=== PATIENT | female | born 1970 | race Caucasian/White ===

== ENCOUNTER → 2022-01-10 09:24 | Outpatient (BNVA) | payer OTHER, SELFPAY | PROVIDERS: PCP Internal Medicine; Visit Provider Student in an Organized Health Care Education/Training Program | DX: M79.7 Fibromyalgia (principal); M23.51 Chronic instability of knee, right knee | CPT/HCPCS: 99212 ==

== ENCOUNTER 2025-03-27 10:57 | Outpatient (AMB) | payer OTHER, SELFPAY ==
--- NOTE | 2025-03-27 11:25 | A.SPINEOV_ITS ---
Intake Visit Reasons: cervical stenosis Intake Note: Ms. Singleton is here today c/o neck pain. MRI done @ [facility] (brought disc). Practicing Md Anesthesiologist Required: No Allergies Penicillins Adverse Reaction (Intermediate, Verified 01/10/22 09:41) Hives Assessment & Plan Assessment & Plan (1) Cervical radiculopathy: Code(s): M54.12 - Radiculopathy, cervical region Category: Medical Plan Dear Dr. Oliva, Thank you for referring Ishmael to our office today. She is a pleasant, complicated, 54-year-old female comes in today for evaluation of neck pain. She reports this has been ongoing for the past 1 year or so. She has a past medical history significant for C5-6 ACDF completed in [address] Degroot at [facility] who has since retired. She reports that she initially was evaluated prior to surgery for a severe posterior neck pain and shooting pain into her arms. Thankfully after her surgery she reports complete resolution of her pain, until about 1 year ago. She also has a history of previous single level lumbar fusion (unsure what level) and spinal cord stimulator implantation. She states that her neck pain has slowly worsened over the course of the last year starting as a low-grade pain which she rated at about 2/10, and now is a more severe sontant 6/10 daily pain with occasional worse flare ups which occur primarily with lateral rotation movements of her neck. The pain shoots into her bilateral deltoids. It is now to the point where she has difficulty sleeping at night and had to buy a special contour pillow in order to get a decent nights sleep. In addition to her history of previous cervical spine surgery, she states that she had bilateral carpal tunnel release surgeries completed. She reports that she had her right side done about 5 years ago which provided complete relief of her weakness, pain and numbness. She recently had her left side done about a year and a half ago and unfortunately had no meaningful relief of the numbness pain and weakness of her left upper extremity after the surgery. She reports that she is concerned that over the course of the last 3-4 weeks she has been dropping things, having issues with dexterity such as writing her name, and the numbness in her left hand / forearm seems to be worsening. She is currently being followed by our colleagues in Neurology for left-sided facial numbness/tingling and migraines. She reports she has been to physical therapy multiple times for this issue in the past, the last course completed about 2 months ago. She has attempted client care consultant and cortisone injections in her cervical spine without significant relief of symptoms. PMH: Being followed by Neurology, recent brain MRI showed white matter changes in the brain but Neurology does not believe this is consistent with MS. Hx of migraines with nausea, vomiting, aura, dizziness. Fibromyalgia, anxiety, chronic rhinitis. The patient reports no cardiac/pulmonary history. No kidney/liver issues reported. History of C5-6 ACDF, history single level lumbar fusion, history bilateral carpal tunnel syndrome with bilateral carpal tunnel release, history ACL repair, history cholecystectomy, history of spinal cord stimulator implantation. Social hx: Patient does not smoke, reports no substance use. Medications: See [employer] list. Allergies: PCN Physical exam: The patient ambulates without any assistive devices and does so without much difficulty. She has about 3/5 strength with bilateral iliopsoas testing. Her dorsiflexion/plantar flexion and knee extension/flexion appears full. 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 The rest of her right upper extremity strength is full. Her left-sided biceps testing is about 4/5 in her left-sided triceps testing is weaker rated at about a 3/5. Shoulder shrug also about 4/5. Patient reports bilateral hand numbness to light touch extending into mid forearm on left side. The rest of her sensation appears intact. Reflexes are 2+ normal diffusely. (-) Velasquez's, (-) clonus, (-) bilateral straight leg raise. Imaging review: MRI of the cervical spine completed at [facility] shows straightening of the normal cervical lordosis with slight kyphotic deformity seen best between C4 -7. Prior C5-6 ACDF. Notable left-sided disc herniation causing moderate central canal and moderate left-sided foraminal stenosis at C 3-4, similar left-sided disc herniation at C4-5 causing moderate central canal and moderate left-sided foraminal stenosis at this level above her previous surgical construct. There is also mild-moderate left-sided foraminal stenosis below her surgical construct at C6-7. No evidence of T2 signal change or myelomalacia. Impression: Pleasant, complicated, 54-year-old female comes in today for evaluation of neck pain. She is s/p C5-6 ACDF in 2009. She had good relief from her previous surgery, however states that about 1 year ago she began experiencing neck pain which gradually has worsened in severity as the months progressed. She is now to the point where she is in about 6/10 pain throughout the day with occasional worsening pain with flare-ups. It is now affecting her activities of daily living, and sleep. In addition to this she has no relief of her numbness or weakness in the left upper extremity after carpal tunnel release 1.5 years ago, and has been experiencing worsening numbness of her left hand extending somewhat into the left forearm for the past 3-4 weeks. These symptoms coupled with notable weakness of the left upper extremity compared to the right leads me to believe that she most likely would benefit from C3-4, C4-5 ACDF to relieve the compression seen on the spinal cord and left-sided exiting nerve roots at these levels. We discussed this at length during this visit. I will review her clinical history and imaging with my attending neurosurgeon Dr. Farfan and follow up with the patient later this week regarding a decision. Thank you for allowing us to care for your patient. The total time spent with this visit with this patient was 65 minutes reviewing history, physical exam, MRI imaging review, and implementation of treatment plan or further diagnostic testing Israel Farfan MD,PhD [facility] Coding Level of Care Code New Pt Level 5 (22537) Diagnoses Cervical radiculopathy M54.12
--- OUTSIDE RECORDS SUMMARY | 2025-03-27 22:43 | XMS_ITS | Data Portability ---
Author Organization [facility] Address [address] [facility] [address] [place] [address] Assessment Encounter Date Assessment Date Assessment LastModified by Organization Details LastModified Time 10/13/2016 10/13/2016 Ishmael Singleton is a 46 year old woman with complaints of low back pain radiating into both lower extremities, left is greater than right. She is S/P low back surgery. She has right sided foot drop. She had a trial of physical therapy with persistent pain. She is here for a follow up after a lumbar epidural steroid injection and reports 50% pain benefit which is ongoing. On Exam, she has pain on flexion. Straight leg raising test is positive on the left. MRI Lumbar Spine shows new post surgical changes at L5-S1 level with postsurgical enhancement in the surgical bed as well as some within the spinal canal surrounding the thecal scar and the left S1 nerve root. No residual or recurrent disc herniation. At L3-4 level , there is diffuse disc bulging with hypertrophy of the facet joints with effacement of left L3 nerve root. I recommend a repeat lumbar epidural steroid injection at L 3-4 level under fluoroscopic guidance. The risks and benefits of the procedure were reviewed in detail. She wishes to proceed. An appointment has been booked in January 2017. I have advised her to continue with a home exercise program. [email or web address] Not available 11/06/2016 14:56:25 02/17/2017 02/17/2017 Ishmael Singleton is a 46 year old woman with complaints of low back pain radiating into both lower extremities, left is greater than right. She is S/P low back surgery. She has right sided foot drop. She had a trial of physical therapy with persistent pain. On Exam, she has pain on flexion. Straight leg raising test is positive on the left. MRI Lumbar Spine shows new post surgical changes at L5-S1 level with postsurgical enhancement in the surgical bed as well as some within the spinal canal surrounding the thecal scar and the left S1 nerve root. No residual or recurrent disc herniation. At L3-4 level , there is diffuse disc bulging with hypertrophy of the facet joints with effacement of left L3 nerve root. She is here for a repeat lumbar epidural steroid injection under fluoroscopic guidance. The risks and benefits of the procedure were reviewed in detail. She wishes to proceed. She will follow up as needed. [email or web address] Not available 02/19/2017 10:36:01 03/25/2017 03/25/2017 Ishmael Singleton is a 46 year old woman who is complaining of pain in the lateral aspect of her right hip. She is S/P low back surgery. She has right sided foot drop. She Is having physical therapy with good pain benefit. On exam, she has tenderness in the right trochanteric bursal region. She has features of right trochanteric bursitis. I recommend a right trochanteric bursal steroid injection under fluoroscopic guidance. The risks and benefits of the procedure were reviewed in detail. She wishes to proceed. An appointment has been made. She needs a emt driver on the day of lukasz procedure. She is complaining of palpitations, jaw pain and right arm pain. She is tachycardic witha heart rate of 105-107. I recommend she sees her PCP. She was advised to go to the ER if pain persists and is she has shortness of breath. [email or web address] Not available 03/25/2017 15:33:08 04/22/2017 04/22/2017 Ishmael Singleton is a 46 year old woman who is complaining of pain in the lateral aspect of her right hip. She is S/P low back surgery. She has right sided foot drop. She Is having physical therapy with good pain benefit. On exam, she has tenderness in the right trochanteric bursal region. She has features of right trochanteric bursitis. She is here for a right trochanteric bursal steroid injection under fluoroscopic guidance. The risks and benefits of the procedure were reviewed in detail. She wishes to proceed. She can follow up as needed [email or web address] Not available 04/23/2017 09:06:33 07/28/2017 07/28/2017 Ishmael Singleton is a 47 year old woman who is complaining of pain in the lateral aspect of her right hip. She is S/P low back surgery. She has right sided foot drop. She Is having physical therapy with good pain benefit. On exam, she has tenderness in the right trochanteric bursal region. She has features of right trochanteric bursitis. I recommend a right trochanteric bursal steroid injection under fluoroscopic guidance. The risks and benefits of the procedure were reviewed in detail. She wishes to proceed. An appointment will be made after insurance approval. She needs a emt driver on the day of the procedure. [email or web address] Not available 08/28/2017 11:16:57 Plan of Treatment Reminders Order Date Submit Date Provider Last Modified By Organization Details Last Modified Time Details Appointments None record ed. Lab None record ed. Referral None record ed. Procedures None record ed. Surgeries None record ed. Imaging None record ed. Medication Orders None record ed. Patient TargetsNo targets recorded. Patient Instructions Encounter Date Encounter Id Patient Instructions Last Modified By Organization Details Last Modified Time 10/13/2016 [id number] She was advised to continue with activities as tolerated. [email or web address] Not available 10/16/2016 16:28:03 02/17/2017 [id number] She was advised to continue with activities as tolerated. [email or web address] Not available 02/19/2017 10:35:09 03/25/2017 [id number] She was advised to continue with activities as tolerated. [email or web address] Not available 03/25/2017 15:29:07 04/22/2017 [id number] She was advised to continue with activities as tolerated. [email or web address] Not available 04/23/2017 09:06:00 07/28/2017 [id number] She was advised to continue with activities as tolerated. [email or web address] Not available 08/28/2017 11:15:36 Reason for Referral None Reported. Results Created Date Observation Date Name Description Value Unit Range Abnormal Flag Note LastModifiedBy Organization Detail LastModifiedTime 02/23/20 17 02/21/2017 XR, lumba r spine No observ ation record ed. [email or web address] [facility] [address] [place] [address], [place], [address], 02/25/2017 15:53:02 Result Notes None recorded. Problems Name Problem SNOMED Code Status Onset Date Resolution Date Notes Provider Name and Address Organization Details Recorded Time Trochanteri c bursitis of right hip 7947040797134 00 Active Ector howe MD [address] [facility] , [address], [place], [address], [place] [facility] 8 11:15:22 Lumbosacral radiculitis 04155270 Active 2016 Ector howe MD [address] [facility] , [address], [place], [address], [place] [facility] 7 13:59:53 Problem Notes None recorded. Procedures Surgical History Date Name Laterality Status Provider Name and Address Organization Details Recorded Time 04/22/20 17 Greater Trochanteric Bursa Steroid Injection completed Ector Mark MD [address] [facility] , [address], [place], [address], [place] [facility] 04/23/2017 09:04:37 02/18/20 17 Lumbar Epidural steroid injection under fluoroscopic guidance completed Ector Mark MD [address] [facility] , [address], [place], [address], [place] [facility] 02/19/2017 10:34:16 09/11/19 17 Lumbar Epidural steroid injection under fluoroscopic guidance completed Ector Mark MD [address] [facility] , [address], [place], [address], [place] [facility] 09/10/2016 10:30:05 Other completed Lucille Powell [place] [facility] 08/29/2016 10:03:06 Lumbar Fusion completed Lucille Powell [place] [facility] 08/28/2016 14:55:28 Imaging Results None recorded. Procedure Notes None recorded. Medical Equipment None Reported. Allergies Allergen ID Allergen Name Allergen Category Reaction Reaction Severity Criticality Documentation Date Start Date Code Code System Note Provider Name and Address Organization Details Recorded Time 94118 Product containin g penicilli n (product) medicatio n facial swelling rash Not available Not available Not available 08/28/2016 76258 8001 SNOMED Lucille hyatt, [place] [facility] 7 14:48:45 Medications Name Sig Start Date Stop Date Status Note LastModified by Organization Details LastModified Time fluoxetine 40 mg capsule 08/28 completed Not Available Not Available Not Available cyclobenzap rine 10 mg tablet TK 1 TO 2 TS PO QHS PRF MUSCLE SPASMS FOR 5 DAYS active Not Available Not Available No t Available prednisone 10 mg tablet 08/28 completed Not Available Not Available Not Available venlafaxine ER 75 mg capsule,ext ended release 24 hr TK 2 CS PO QAM active Not Available Not Available No t Available azithromyci n 250 mg tablet TK 2 TS PO ON DAY ONE THEN 1 T D FOR THE NEXT 4 DAYS 07/28 completed Not Available Not Available Not Available ibuprofen 800 mg tablet 08/28 completed Not Available Not Available Not Available prednisone 20 mg tablet 07/28 completed Not Available Not Available Not Available clonazepam 0.5 mg tablet TK 1 T PO BID PRF ANXIETY 07/28 completed Not Available Not Available Not Available clonazepam 1 mg tablet TK 1 T PO BID PRA active Not Available Not Available No t Available clindamycin HCl 150 mg capsule 08/28 completed Not Available Not Available Not Available venlafaxine ER 150 mg capsule,ext ended release 24 hr TK ONE C PO QAM FOR ANXIETY AND DEPRESSIO N 07/28 completed Not Available Not Available Not Available doxycycline monohydrate 100 mg tablet 08/28 completed Not Available Not Available Not Available tramadol 50 mg tablet 03/25 completed Not Available Not Available Not Available temazepam 7.5 mg capsule 07/28 completed Not Available Not Available Not Available meloxicam 7.5 mg tablet 02/17 completed Not Available Not Available Not Available oxycodone-a cetaminophe n 5 mg-325 mg tablet 08/28 completed Not Available Not Available Not Available methocarbam ol 750 mg tablet 08/28 completed Not Available Not Available Not Available amitriptyli ne 10 mg tablet TK 1 T PO QHS. MAKE SURE TO TK 1 HOUR BEFORE ANY OTHER NIGHT TIME MEDS active Not Available Not Available No t Available lorazepam 2 mg tablet TK 1 T PO THE NIGHT BEFORE PROCEDURE AND 1 T PO 1 HOUR PRIOR TO PROCEDURE 07/28 completed Not Available Not Available Not Available mirtazapine 30 mg tablet TK 1 T PO QHS PRF SLEEP AND MOOD 07/28 completed Not Available Not Available Not Available lidocaine 5 % topical patch TAD 1 PA EXT TO THE SKIN Q DAY. MAY WEAR UP TO 12 H active Not Available Not Available No t Available propranolol ER 80 mg capsule,24 hr,extended release TK ONE C PO QHS active Not Available Not Available No t Available buspirone 7.5 mg tablet TK 1 T PO BID 07/28 completed Not Available Not Available Not Available Proventil HFA 90 mcg/actuati on aerosol inhaler INL 2 PFS ITL Q 4 H PRF COUGH OR WHZ active Not Available Not Available No t Available zolpidem 5 mg tablet 03/25 completed Not Available Not Available Not Available norethindro ne acetate 5 mg tablet 08/28 completed Not Available Not Available Not Available mirtazapine 15 mg tablet TK 1 T PO HS FOR LAST PULLER active Not Available Not Available No t Available lorazepam 1 mg tablet 08/28 completed Not Available Not Available Not Available ibuprofen 600 mg tablet 08/28 completed Not Available Not Available Not Available fluoxetine 20 mg capsule TK 1 C PO D 08/28 completed Not Available Not Available Not Available naproxen 500 mg tablet 02/17 completed Not Available Not Available Not Available buspirone 15 mg tablet TK 1 T PO BID PRA active Not Available Not Available No t Available oxycodone 5 mg tablet 08/28 completed Not Available Not Available Not Available duloxetine 30 mg capsule,del ayed release TK ONE C PO QAM 02/17 completed Not Available Not Available Not Available duloxetine 60 mg capsule,del ayed release active Not Available Not Available Not Available Lyrica 75 mg capsule 08/28 completed Not Available Not Available Not Available Lyrica 150 mg capsule 08/28 completed Not Available Not Available Not Available peg 3350 240 gram-electr olytes 22.72 gram-6.72 g-5.84 g powdr for soln 09/10 completed Not Available Not Available Not Available Vitamin D3 50 mcg (2,000 unit) tablet TK 1 C PO D 07/28 completed Not Available Not Available Not Available Vitamin D3 50 mcg (2,000 unit) capsule TK 1 C PO D active Not Available Not Available No t Available Vitals Date Recorded Body height Heart rate Oxygen saturation Oxygen saturation in Arterial blood by Pulse oximetry Systolic And Diastolic Provider Name and Address Organization Details Last Updated DateTime 8 167.64 cm 69 /min 98 % 98 % 129/78 mm[Hg] Lucille Powell [place] [facility] 8 10:23:48 Date Recorded Body height Heart rate Oxygen saturation Oxygen saturation in Arterial blood by Pulse oximetry Systolic And Diastolic Provider Name and Address Organization Details Last Updated DateTime 7 167.64 cm 62 /min 99 % 99 % 107/58 mm[Hg] Lucille Powell [place] [facility] 7 11:04:34 Date Recorded Body height Heart rate Oxygen saturation Oxygen saturation in Arterial blood by Pulse oximetry Systolic And Diastolic Provider Name and Address Organization Details Last Updated DateTime 7 167.64 cm 76 /min 98 % 98 % 117/75 mm[Hg] Lucille Powell [place] [facility] 7 13:45:46 Date Recorded Body height Heart rate Oxygen saturation Oxygen saturation in Arterial blood by Pulse oximetry Systolic And Diastolic Provider Name and Address Organization Details Last Updated DateTime 7 167.64 cm 114 /min 98 % 98 % 159/96 mm[Hg] Lucille Powell [place] [facility] 7 14:31:55 Date Recorded Body height Heart rate Oxygen saturation Oxygen saturation in Arterial blood by Pulse oximetry Systolic And Diastolic Provider Name and Address Organization Details Last Updated DateTime 7 167.64 cm 74 /min 97 % 97 % 125/83 mm[Hg] Lucille Powell [place] [facility] 7 11:39:31 Social History Question Answer Notes LastModified by Organizat ion Details LastModified Time Tobacco Smoking Status Never Smoker Not Available [employer] 02/24/2020 03:16:11 Which Illicit Or Recreational Drugs Have You Used? No [id number] Information not available 02/24/2020 Education 2 Year College [email or web address] Information not available 08/28/2016 Live Alone Or With Others? With Others And 4 Children Information not available 08/28/2016 Marital Status Informatio n not available 08/28/2016 What Was The Date Of Your Most Recent Tobacco Screening? 04/23/2017 [id number] Information not available 02/24/2020 Sex: Unknown Functional Status Question Answer Note LastModified by Organization D etails LastModified Time What is your level of alcohol consumption? None [id number] Information not available 02/24/2020 Are you currently employed? No [id number] Information not available 02/24/2020 Mental Status None recorded. 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 Obstetrics History GPAL:G 0 P 0 0 0 0 Past Encounters Encounter ID Performer Location Encounter Start Date Encounter Closed Date Diagnosis/Indication Diagnosis SNOMED-CT Code Diagnosis ICD10 Code Diagnosis IMO Codes Diagnosis Note [id number] Ector Mark MD PAIN OFFICE [address] [facility] [place] [address] 08/28/2016 14:20:47 08/29/2016 09:18:19 Displacement of lumbar intervertebral disc without myelopathy 01008122 M51.26 Lumbar post-laminectomy syndrome 964878153 M96.1 Muscle pain 27724476 M79 .1 Lumbosacra l radiculitis 53359269 M54.17 Lumbosacra l spondylosis without myelopathy 47516411 M47.817 Neuropathy due to diabetes mellitus 948872684 E11.40 [id number] Ector Mark MD PAIN OFFICE [address] [facility] [place] [address] 09/10/2016 09:49:41 09/10/2016 11:50:49 Displacement of lumbar intervertebral disc without myelopathy 32560973 M51.26 Lumbar post-laminectomy syndrome 690915945 M96.1 Muscle pain 89408967 M79 .1 Lumbosacra l radiculitis 08693699 M54.17 Lumbosacra l spondylosis without myelopathy 45938162 M47.817 Neuropathy due to diabetes mellitus 142507982 E11.40 [id number] Ector Mark MD PAIN OFFICE [address] [place] [address] 10/13/2016 10:49:09 10/16/2016 16:32:47 Displacement of lumbar intervertebral disc without myelopathy 36698808 M51.26 Lumbar post-laminectomy syndrome 152624744 M96.1 Muscle pain 17742796 M79 .1 Lumbosacra l radiculitis 15022897 M54.17 Lumbosacra l spondylosis without myelopathy 30722286 M47.817 Neuropathy due to diabetes mellitus 460721625 E11.40 [id number] Ector Mark MD PAIN OFFICE [address] [place] [address] 02/17/2017 13:24:57 02/19/2017 11:06:15 Displacement of lumbar intervertebral disc without myelopathy 77350807 M51.26 Lumbar post-laminectomy syndrome 290950570 M96.1 Muscle pain 72245773 M79 .1 Lumbosacra l radiculitis 95277527 M54.17 Lumbosacra l spondylosis without myelopathy 28757860 M47.817 Neuropathy due to diabetes mellitus 667563399 E11.40 [id number] Ector Mark MD PAIN OFFICE [address] [place] [address] 03/25/2017 14:15:40 03/25/2017 15:34:16 Displacement of lumbar intervertebral disc without myelopathy 18489260 M51.26 Lumbar post-laminectomy syndrome 153863633 M96.1 Muscle pain 95269380 M79 .1 Lumbosacra l radiculitis 61257271 M54.17 Lumbosacra l spondylosis without myelopathy 78547727 M47.817 Neuropathy due to diabetes mellitus 072121351 E11.40 Greater tr ochanteric pain syndrome 8352300 M70.61 [id number] Ector Mark MD PAIN OFFICE [address] [place] [address] 04/22/2017 11:37:55 04/23/2017 09:26:08 Displacement of lumbar intervertebral disc without myelopathy 38219447 M51.26 Lumbar post-laminectomy syndrome 942596761 M96.1 Muscle pain 68472672 M79 .1 Lumbosacra l radiculitis 02825290 M54.17 Lumbosacra l spondylosis without myelopathy 70075126 M47.817 Neuropathy due to diabetes mellitus 484483882 E11.40 Greater tr ochanteric pain syndrome 0062058 M70.61 [id number] Ector Mark MD PAIN OFFICE [address] [facility] [address] [place] [address] 07/28/2017 09:26:40 08/28/2017 11:17:39 Displacement of lumbar intervertebral disc without myelopathy 53036732 M51.26 Lumbar post-laminectomy syndrome 299096249 M96.1 Muscle pain 81071615 M79 .1 Lumbosacra l radiculitis 98092850 M54.17 Lumbosacra l spondylosis without myelopathy 81580502 M47.817 Neuropathy due to diabetes mellitus 652619337 E11.40 Greater tr ochanteric pain syndrome 3122412 M70.61 Health Concerns Section Related Observation LastModified by Organization Detai ls LastModified Time None Recorded Concern Status LastModified by Organization Details LastModified Time None Recorded Advance Directives Directive None Recorded Payers Insurance Date Sequence Insurance Name Policy Number Policy Steel Covered Member ID Steel Member ID Guarantor Name 08/28/2017 1 [facility] - [facility] (MEDICAID REPLACEMENT - HMO) ESTEPHANIA Singleton [id number] Ishmael Snigleton 07/28/2017 1 [facility] (MEDICAID HMO) [id number] Ishmael Singleton [id number] Ishmael Singleton Notes Date Note Type Note Provider Name and Address Organization Details Recorded Time 10/13/2016 text/html She is here for a follow up to Lumbar epidural steroid injection under fluoroscopic guidance. She reports 50% pain benefit which is ongoing. She has minimal leg pain now and has some intermittent low back pain. She is doing exercises at home to improve the strength of her muscles in her right foot. She has no history of bladder or bowel incontinence. Ector Mark MD [address] , [address], [facility] [place], [address], [facility] 11/12/2016 08:36:00 02/17/2017 text/html She is here for a lumbar epidural steroid injection under fluoroscopic guidance.She fell at home and is having an exacerbation of her pain. Ector Mark MD [address] [facility] , [address], [place], [address], [facility] - [facility] 03/02/2017 19:36:17 03/25/2017 text/html She is here for a follow up. She reports 50% pain benefit after last epidural steroid injection under fluoroscopic guidance. She states she is having physical therapy at [facility] in [place], [place] . She reports good improvement in the strength of her right leg and foot. She is complaining of pain in the lateral aspect of her right hip. She states she is unable to lie down on the bed on her right hip due to pain. She has no history of bladder or bowel incontinence.She is also complaining of pain in her jaw and right arm pain. She states she also has palpitations. Ector Mark MD [address] [facility] , [address], [place], [address], [facility] - Pain Management 04/07/2017 08:45:06 04/22/2017 text/html She is here for a right trochanteric bursal steroid injection under fluoroscopic guidance. Ector Mark MD [address] [facility] , [address], [place], [address], [facility] - Pain Management 04/30/2017 11:53:36 07/28/2017 text/html She is here for a follow up. She reports 50% pain benefit after last right trochanteric bursal steroid injection under fluoroscopic guidance. She states she is having physical therapy at [facility] in [place], [place] . She reports good improvement in the strength of her right leg and foot. She is complaining of pain in the lateral aspect of her right hip. She states she is unable to lie down on the bed on her right hip due to pain. She has no history of bladder or bowel incontinence. Ector Mark MD [address] [facility] , [address], [place], [address], [facility] - Pain Management 09/08/2017 09:05:12 OBGyn Episode No OBEpisode recorded.
--- OUTSIDE RECORDS SUMMARY | 2025-03-27 22:43 | XMS_ITS | Data Portability ---
Author Organization [employer] [facility], [facility] Address [address] [place] [address] Care Team Providers Care Cobol Developer Name Role Phone HIM CCA OTHER Assessment Encounter Date Assessment Date Assessment LastModified by Organization Details LastModified Time 11/21/2024 11/21/2024 I provided real -time medical direction via phone for this encounter and was available for additional phone-based assistance as needed. I have reviewed and agree with the Assessment and Plan as documented by the Jailor. Patient given the opportunity to ask questions. Our service contacted for an assessment of: Fevers As per above, patient develop fevers on Thursday and subsequently believes that she developed small red lesions on her palm surface of the hands bilaterally. Also developed a sore throat late Thursday. Is eating and drinking normally. Fever has subsequently resolved. Has not taken anything [id number]. Denies any exposure to sick individuals. Denies any upper respiratory tract symptoms. Per help desk rep on the scene, Vital signs are stable and patient is afebrile. Please see uploaded pictures. Patient is nontoxic on exam. Patient denies headache or sore throat currently. Strep test is negative. Impression: Likely viral illness but differential diagnosis is broad Plan: Tylenol q.6 hours for the next 24 hours and close observation of symptoms. Red flags discussed as to when to seek a higher level of care. Maintain hydration. Allergies: Reviewed We discussed the diagnostic uncertainty of home visits and the risk associated with this. In this case, the patient and I felt this to be an acceptable and reasonable amount of risk given the benefit of avoiding an ED visit. We discussed the need to seek care urgently/emergentl y in the setting of any new or worsening serious symptoms, particularly fever chills lightheadedness altered mental status [id number] Not available 11/21/2024 16:20:48 Plan of Treatment Reminders Order Date Submit Date Provider Last Modified By Organization Details Last Modified Time Details Appointments None recorded . Lab rapid strep group A, throat 025 11/22/19 25 [facility], [address] [place], [address] 5 17:12:18 Referral None recorded . Procedures None recorded . Surgeries None recorded . Imaging None recorded . Medication Orders None recorded . Patient TargetsNo targets recorded. Patient InstructionsNo instructions recorded. Reason for Referral None Reported. Results Created Date Observation Date Name Description Value Unit Range Abnormal Flag Note LastModifiedBy Organization Detail LastModifiedTime Result Notes None recorded. Medical Equipment None Reported. Allergies Allergen ID Allergen Name Allergen Category Reaction Reaction Severity Criticality Documentation Date Start Date Code Code System Note Provider Name and Address Organization Details Recorded Time 78036 Product containin g penicilli n (product) medicatio n Not available Not available Not available 11/21/2024 90868 8001 SNOMED Not Available [employer] - production 5 15:21:21 Medications Name Sig Start Date Stop Date Status Note LastModified by Organization Details LastModified Time venlafaxine ER 75 mg capsule,ext ended release 24 hr TAKE 1 CAPSULE BY MOUTH EVERY DAY WITH 150 MG FOR A TOTAL DAILY DOSE OF 225 MG active Not Available Not Available No t Available atorvastati n 20 mg tablet TAKE 1 TABLET BY MOUTH ONCE DAILY AT BEDTIME active Not Available Not Available No t Available polyethylen e glycol 3350 17 gram oral powder packet DISSOLVE 1 PACKET IN WATER AND DRINK ONCE A DAY active Not Available Not Available No t Available clonazepam 1 mg tablet TAKE 1 TABLET BY MOUTH two (2) times a day NEEDED ANXIETY greater THAN 8 OUT OF 10 active Not Available Not Available No t Available venlafaxine ER 150 mg capsule,ext ended release 24 hr TAKE 1 CAPSULE BY MOUTH EVERY MORNING FOR ANXIETY OR depressio n active Not Available Not Available No t Available sulfamethox azole 800 mg-trimetho prim 160 mg tablet TAKE 1 TABLET BY MOUTH TWICE DAILY 11/21 completed Not Available Not Available Not Available doxycycline monohydrate 100 mg tablet TAKE 1 TABLET BY MOUTH TWICE DAILY 11/21 completed Not Available Not Available Not Available oxycodone-a cetaminophe n 5 mg-325 mg tablet TAKE 1 TABLET BY MOUTH EVERY 6 HOURS NEEDED FOR SEVERE PAIN active Not Available Not Available No t Available cephalexin 500 mg capsule TAKE 1 CAPSULE BY MOUTH EVERY 6 HOURS 11/21 completed Not Available Not Available Not Available mirtazapine 45 mg tablet TAKE 1 TABLET BY MOUTH ONCE DAILY AT BEDTIME FOR SLEEP OR mood active Not Available Not Available No t Available albuterol sulfate HFA 90 mcg/actuati on aerosol inhaler INHALE 2 PUFFS BY MOUTH EVERY 4 HOURS NEEDED FOR WHEEZING active Not Available Not Available No t Available lisinopril 2.5 mg tablet TAKE 1 TABLET BY MOUTH ONCE DAILY active Not Available Not Available No t Available naproxen 500 mg tablet TAKE 1 TABLET BY MOUTH TWICE DAILY NEEDED FOR MODERATE PAIN SCALE 4-6 active Not Available Not Available No t Available buspirone 15 mg tablet TAKE 1 TABLET BY MOUTH two (2) times a day FOR ANXIETY active Not Available Not Available No t Available tobramycin 0.3 %-dexametha sone 0.1 % eye drops,suspe nsion SHAKE LIQUID AND INSTILL 1 DROP IN RIGHT EYE EVERY 4 HOURS WHILE AWAKE FOR 10 DAYS 11/21 completed Not Available Not Available Not Available bupropion HCl XL 300 mg 24 hr tablet, extended release TAKE 1 TABLET BY MOUTH EVERY MORNING FOR mood active Not Available Not Available No t Available pregabalin 300 mg capsule TAKE 1 CAPSULE BY MOUTH TWICE DAILY active Not Available Not Available No t Available diclofenac 1 % topical gel APPLY 2 GRAMS TOPICALLY TO AFFECTED JOINT FOUR TIMES DAILY active Not Available Not Available No t Available cholecalcif valeria (vitamin D3) 50 mcg (2,000 unit) capsule TAKE 1 CAPSULE BY MOUTH DAILY active Not Available Not Available No t Available Vitals Date Recorded Oxygen saturation Oxygen saturation in Arterial blood by Pulse oximetry Body height Respiratory rate Body temperature Body weight Heart rate Systolic And Diastolic Provider Name and Address Organization Details Last Updated DateTime 5 96 % 96 % 167.64 cm 18 /min 98 [degF] 52247.8 08 g 90 /min 117/80 mm[Hg] Not Available [email or web address] - production 5 16:17:30 Social History None recorded. Functional Status None recorded. Mental Status None recorded. Family History Nothing Reported. Medical History No medical history recorded. Gynecological HistoryNo gynecological history recorded. Obstetrics History GPAL:G 0 P 0 0 0 0 Past Encounters Encounter ID Performer Location Encounter Start Date Encounter Closed Date Diagnosis/Indication Diagnosis SNOMED-CT Code Diagnosis ICD10 Code Diagnosis IMO Codes Diagnosis Note [id number] Heather Cano MD [facility] ED Medical [facility] [address] [place] [address] 11/21/2024 16:17:22 11/21/2024 19:38:52 Viral disease 40621065 B34.9 94529 Health Concerns Section Related Observation LastModified by Organization Detai ls LastModified Time None Recorded Concern Status LastModified by Organization Details LastModified Time None Recorded Advance Directives Directive None Recorded Payers Insurance Date Sequence Insurance Name Policy Number Policy Steel Covered Member ID Steel Member ID Guarantor Name 11/21/2024 1 [facility] - DOS ON OR AFTER 2022 - DUAL ELIGIBLE - [employer] AND ONE [employer] (MEDICARE REPLACEMENT/ADV ANTAGE - HMO) Ishmael Singleton [id number] Ishmael Singleton Notes Date Note Type Note Provider Name and Address Organization Details Recorded Time 11/21/2024 text/html CRC Nurse Triage Notes (Desirae Victor): Reason For Request: Patient has blisters on her foot, and now they are spreading to her hands. Denies: Harris Flash, circumferential harris Harris reported with black tissue to the area Open skin area after a fall with uncontrolled bleeding Abscess/infection with streaking noted, presence of fever or without Chief Complaints: Extremity Pain, Rash, Sore Throat, Wound Care PMH: Hyperlipidemia, Hypertension, Cholecystectomy PMH Reviewed at 11/21/2024 - 15:21 Allergies Reviewed at 11/21/2024 - 15:21 Comments: 54 y.o female complains of Extremity Pain, Rash, Sore Throat, Wound Care Patient who presented with fever, chills and sore throat 2 days ago. Today she woke up with blisters to her hands and feet. Continues with sore throat; painful to swallow, but fever/chills have resolved. Blisters are painful and fluid filled, look clear in appearance, mild swelling to her feet, no swelling to her hands, denies sores in her mouth.. No cough or chest congestion. She would like to be evaluated. I provided information on the mobile health provider response time and advised the patient and/or caregiver to monitor reported signs and symptoms. I discussed the warning signs of when to seek emergency care. Jailor Organization Information for [facility] [employer] Name: [employer]. Address: [address] [place] [id number], Trust Clerk: Navi HOSKINS No.: [id number] Jailor POC Test Results from [facility] Rapid strep test (16:15:28) Strep: - ..................... ..................... ..................... ..................... ..................... ..................... ............... Jailor Note From [facility]: Sent to a call for a pt complaining of blisters on hands and feet. Pt complains of fever (Fri and Sat), Sore throat and rash on posterior neck (looks like heat rash) on Sat, and red spots (possible small vesicles) on hands and feet today which itch and burn. Pt denies mckinney, dizziness, cp, sob, n/v/d, abd pain, fever, or loc. BP:117/80, P:90, RR:18, SpO2:96% RA, T:98.0; Head: unremarkable; Neck: posterior neck rash; Lung sounds: clear bilaterally; Abdomen: soft, non-tender, no distention; Back: unremarkable; Extremities: rash (possible vesicles) on hands and feet; Skin: pink, warm, dry; Rapid strep test: neg; [facility] [place] and pt is advised to take Tylenol and continue symptomatic treatment. Red flags discussed. Pt has no further questions. [facility] Lab Orders: rapid strep group A, throat: Performed ..................... ..................... ..................... ..................... ..................... ..................... ............... [facility] Consulted: Heather Cano ..................... ..................... ..................... ..................... ..................... ..................... ............... Disposition: Fulfilled Heather Cano MD [address] [place] [address],[address] [facility], [place], [address], [place]ser 11/21/2024 16:57:16 OBGyn Episode No OBEpisode recorded.
== END 2025-03-27 11:42 | disposition home or self-care (01) ==
LOC: HO.HNS 10:57
PROVIDERS: PCP Internal Medicine; Referring Provider Psychiatry & Neurology Neurology; Visit Provider Physician Assistant
DX: M54.12 Radiculopathy, cervical region (principal)
CPT/HCPCS: 99205

== ENCOUNTER → 2025-03-27 10:57 | Outpatient (BNVA) | payer OTHER, SELFPAY | PROVIDERS: PCP Internal Medicine; Referring Provider Psychiatry & Neurology Neurology; Visit Provider Physician Assistant | DX: M54.12 Radiculopathy, cervical region (principal); M79.7 Fibromyalgia; Z87.39 Personal history of other diseases of the musculoskeletal system and connective tissue; Z98.890 Other specified postprocedural states | CPT/HCPCS: 99202 ==